=== PATIENT | female | born 1970 | race Caucasian/White ===

== ENCOUNTER → 2017-03-26 | Outpatient (CLI) | payer OTHER ==
[2017-03-27 03:27] LABS: Source ENDOCERVICAL/CX
== END | disposition home or self-care (01) ==
LOC: LAB 13:52
PROVIDERS: Nurse Practitioner
DX: Z01.419 Encounter for gynecological examination (general) (routine) without abnormal findings (principal)
CPT/HCPCS: G0145

== ENCOUNTER 2024-12-09 22:34 | Emergency (ER) | payer SELFPAY ==
[~2024-12-09] VITALS: Ht 180.3 cm; Wt 77.1 kg
[2024-12-10] MEDS ORDERED: SERT50 PO (00:32)
[2024-12-10] MEDS ORDERED: DUPIXENT P300 MG/2 M SC (00:33)
[2024-12-10] MEDS ORDERED: OXYC5 PO (01:34)
[2024-12-10] MEDS ORDERED: RX Prepack 6 Tabs Oxycodone 5mg UD ONE (01:35)
[2024-12-10 01:45] VITALS: BP 103/2
== END 2024-12-10 01:47 | disposition home or self-care (01) ==
LOC: ER 22:34
DX: S82.841A Displaced bimalleolar fracture of right lower leg, initial encounter for closed fracture (principal); W18.30XA Fall on same level, unspecified, initial encounter
CPT/HCPCS: 29515; 73610; 99283-25; A9270

== ENCOUNTER 2024-12-17 12:39 | Day surgery (SDC) | payer OTHER ==
[~2024-12-17] VITALS: Ht 177.8 cm; Wt 95.0 kg
[~2024-12-17 12:39] MED LIST: DUPIXENT P300 MG/2 M SC; OXYC5 PO; SERT50 PO
[2024-12-17] MEDS ORDERED: CeFAZolin Sodium 2,000 MG VIAL ONE (12:57)
[2024-12-17] MEDS ORDERED: IBUP200 PO (13:31)
[2024-12-17] MEDS ORDERED: Midazolam HCl 1MG / ML 2ML Vial ONE (13:39)
[2024-12-17] MEDS ORDERED: FentaNYL Citrate 50 MCG/ML 2 ML Injection ONE (13:39)
[2024-12-17] MEDS ORDERED: Bupivacaine 0.5% HCl 5 MG/ML 30MLVIAL ONE (13:42)
--- NOTE | 2024-12-17 13:56 | NUR ---
12/17/[address] ORDERED RN TO GIVE 50 MCG FENTANYY IV FOR PT 8/10 ACHE THROBBING CONSTANT PAIN AFTER DR KRAUSE REMOVED CAST IN PRE-OP. BP 115/68 1348 HR 69 O2 98% RA BP 134/73 1353 HR 69 O2 99% RA PAIN 6/10
[2024-12-17] MEDS ORDERED: Ketorolac Tromethamine 30mg Vial ONE (15:31)
[2024-12-17] MEDS ORDERED: Bupivacaine 0.5% W/EPI 1:200000 SDV 30 ML Vial ONE (15:33)
[2024-12-17 16:45] VITALS: BP 119/63
[2024-12-17] MEDS ORDERED: Ondansetron HCl 2 MG / ML 2ML Vial IV ONE (19:09)
== END 2024-12-17 16:42 | disposition home or self-care (01) ==
LOC: ORSCSDS 12:39
PROVIDERS: Podiatrist Foot & Ankle Surgery
PROC: 0QSJ04Z Reposition Right Fibula with Internal Fixation Device, Open Approach (ICD-10-PCS; principal; 2024-12-17 14:00)
PROC: 0QSG04Z Reposition Right Tibia with Internal Fixation Device, Open Approach (ICD-10-PCS; principal; 2024-12-17 14:00)
DX: S82.841A Displaced bimalleolar fracture of right lower leg, initial encounter for closed fracture (principal); Z87.891 Personal history of nicotine dependence; Z79.899 Other long term (current) drug therapy; J45.909 Unspecified asthma, uncomplicated
CPT/HCPCS: A6253; C1713; J0690; J1885; J2250; J2405; J2704; J3010; J7120